=== PATIENT | male | born 1960 | race Caucasian/White ===

== ENCOUNTER 2024-12-03 10:36 | Observation (INO) ==
[2024-12-03 11:10] LABS: MEAN PLATELET VOLUME 8.4 fL (7.4-11.0); RED CELL DISTRIBUTION WIDTH 14.7 % (11.6-16.5)
[2024-12-03 11:24] LABS: COR NA(FOR HYPERGLY) 139 mmol/L (136-145); CREATININE 0.87 mg/dL (0.70-1.30); eGFR NON BLACK RACES > 60 (>60)
--- NOTE | 2024-12-03 11:25 | DR.GENAD ---
HPI Time Seen Time Seen by Provider: 12/03/24 11:22 PCP Primary Care Physician: odette shelton Complaint/Symptoms Chief Complaint Doctors Comments: Patient stated he has had a stroke sometime ago and he is not ambulatory as much so he is sitting down and he develops of a lot of moist activity in private area. He has been treated for yeast infection for the last month with Diflucan he said for the last couple days he has noticed some foul can order that area and more drainage in his scrotum area he is here to further evaluate that. Chief Complaint:: Patient states he has a issue with his private area staying moist due to prolong sitting due to a past cva he states for the past month he developed a yeast infection in his scrotum area he been on diflucan but the past couple days he has had increase pain and swelling in his scrotum area along with redness and foul smelling green discharge coming out for around the scrotum. Self Treatment fo Chief Complaint: diflucan COVID-19 Coronavirus risk:travel/contact w/high risk person: No Has patient experienced Coronavirus symptoms: No Source History Provided: Patient Mode of Arrival Mode of Arrival: Wheelchair Timing Onset of Chief Complaint: 11/26/24 PMH PMH Past Medical History: Yes Past Medical History: CVA, Diabetes and Hypertension Past Medical History Comment: a-fib, brain aneurysm Past Surgical History: Yes Past Surgical History Comment: brain aneurysm Family History History of Family Medical Conditions: Yes Family Medical History: Diabetes Mellitus and Hypertension Social History Does patient currently use any type of tobacco product: No Have you used tobacco products in the last 12 months: No Type of Tobacco Use: None Does any household member use tobacco: No Alcohol Use: None Do you use any recreational Drugs:: No Lives With: Family Lives Where: Home Travel Risk Coronavirus risk:travel/contact w/high risk person: No Has patient experienced Coronavirus symptoms: No Infectious screening In the last 2 months have you had wt loss of >10#?: NO Have you had fever, night sweats or hemotysis?: No Have you traveled outside the country in the last 6 months?: No Isolation: Standard ROS Review of Systems Constitutional: Other (scrotal pain and erythema) Eyes: No Symptoms Reported ENTM: No Symptoms Reported Respiratoy: No Symptoms Reported Cardiovascular: No Symptoms Reported Gastrointestinal/Abdominal: No Symptoms Reported Genitourinary: Other (scrotal pain and erythema) Neurological: No Symptoms Reported Musculoskeletal: No Symptoms Reported Integumentary: Other (erythema and swelling of scrotum) PE Vital Signs Vitals: Vital Signs Pulse Rate 76 Pulse Rate 72 Pulse Rate 65 Pulse Rate 72 Pulse Rate 71 Pulse Rate 69 Pulse Rate 68 Pulse Rate 71 Pulse Rate 72 Pulse Rate 72 Pulse Rate 67 Pulse Rate 72 Pulse Rate 71 Pulse Rate 74 Pulse Rate 74 Pulse Rate 70 Pulse Rate 72 Pulse Rate 73 Respiratory Rate 15 Blood Pressure 132/89 Blood Pressure 106/62 Blood Pressure 143/89 Blood Pressure 143/89 Blood Pressure 143/89 Blood Pressure 114/74 Blood Pressure 114/74 Blood Pressure 151/95 Blood Pressure 151/95 Blood Pressure 124/76 Blood Pressure 130/80 Blood Pressure 106/67 O2 Sat by Pulse Oximetry 96 O2 Sat by Pulse Oximetry 94 O2 Sat by Pulse Oximetry 96 O2 Sat by Pulse Oximetry 95 O2 Sat by Pulse Oximetry 95 O2 Sat by Pulse Oximetry 96 O2 Sat by Pulse Oximetry 95 O2 Sat by Pulse Oximetry 95 O2 Sat by Pulse Oximetry 96 O2 Sat by Pulse Oximetry 95 O2 Sat by Pulse Oximetry 94 O2 Sat by Pulse Oximetry 94 O2 Sat by Pulse Oximetry 96 O2 Sat by Pulse Oximetry 96 O2 Sat by Pulse Oximetry 96 General Limitations: No Limitations General Appearance: In Distress (moderate distress) Head Head Exam: Normal Inspection, Atraumatic and Normocephalic Eyes Eye exam: Normal Appearance ENT ENT Exam: Normal Exam and Normal Oropharynx External Ear Exam: Normal External Inspection TM/Canal Exam: Bilateral: Normal Nose Exam: Normal Nose Exam Mouth Exam: Normal Inspection Throat Exam: Normal Inspection Neck Neck Exam: Normal Inspection Chest Chest Inspection: Normal Inspection Respiratory Respiratory Exam: Normal Lung Sounds Bilat Respiratory Exam: Bilateral: Clear to Auscultation Cardiovascular Cardiovascular Exam: Regular Rate Abdominal Exam Abdominal Exam: Normal Inspection Extremities Extremities Exam: Normal Inspection Back Back Exam: Normal Inspection Psychiatric Psychiatric Exam: Normal Affect Skin Skin Exam: Warm, Dry, Intact and Other (erythema in scrotal area) Other Exam Other Exam: erythema in scrotal area with edema MDM Differential Diagnosis Differential Diagnosis: scrotal cellulitis,yeast orchitis COURSE Treatment Treatment: Patient remained relatively stable during ER evaluation. We did do a CT scan of this abdomen pelvis that did not show that he may have a scrotal cellulitis and they suggest suggest that we get a ultrasound of the testicles to make sure he does not have abscess we did do a an ultrasound of the testicles and it did not show a an abscess that shows some other things like varicocele and some hydrocele but no other torsions or anything like that. Patient did have a slightly elevated WBC of 12.5 since he is a diabetic and has had a stroke where he is almost very weak and paralyzed from the waist down we did give him 600 of Cleocin in the ER and referred him to the on-call physician Dr. Fairbanks to further treat for a scrotal cellulitis. I did talk to Dr. Fairbnaks at 2014 and he stated that the patient could be admitted for further treatment with IV antibiotics but also add Diflucan to the regimen. Did call for the case management and they said the patient could be admitted to observation. Patient was told of intent to admit to observation and was agreeable to the admission. [facility]OR Labs Reviewed Laboratory Results Reviewed?: Yes 12/03/24 10:50 12/03/24 10:50 Laboratory: 12/03/24 11:44 Scrotum Wound Gram Stain - Final WBC 12.5 X10^3/uL (3.6-10.0) H 12/03/24 10:50 RBC 4.99 X10^6/uL (4.7-6.0) 12/03/24 10:50 Hgb 14.8 g/dL (13.5-18.0) 12/03/24 10:50 Hct 43.7 % (42.0-54.0) 12/03/24 10:50 MCV 87.6 fL (80.0-100.0) 12/03/24 10:50 MCH 29.7 pg (27.0-34.0) 12/03/24 10:50 MCHC 33.9 g/dL (33.0-35.0) 12/03/24 10:50 RDW 14.7 % (11.6-16.5) 12/03/24 10:50 Plt Count 158 X10^3/uL (150.0-450.0) 12/03/24 10:50 MPV 8.4 fL (7.4-11.0) 12/03/24 10:50 Neut % (Auto) 72.4 % (42.0-75.0) 12/03/24 10:50 Lymph % (Auto) 14.9 % (21.0-51.0) L 12/03/24 10:50 [place] % (Auto) 11.2 % (0.0-13.0) 12/03/24 10:50 Eos % (Auto) 1.0 % (0.9-2.9) 12/03/24 10:50 Baso % (Auto) 0.5 % (0.2-1.0) 12/03/24 10:50 Neut # (Auto) 9.0 x10^3/uL (2.2-4.8) H 12/03/24 10:50 Lymph # (Auto) 1.9 X10^3/uL (1.3-2.9) 12/03/24 10:50 [place] # (Auto) 1.4 x10^3/uL (0.3-0.8) H 12/03/24 10:50 Eos # (Auto) 0.1 x10^3/uL (0.0-0.2) 12/03/24 10:50 Baso # (Auto) 0.1 X10^3/uL (0.0-0.1) 12/03/24 10:50 Absolute Nucleated RBC 0.2 /100WBC 12/03/24 10:50 Sodium 136 mmol/L (136-145) 12/03/24 10:50 Corrected Sodium 139 mmol/L (136-145) 12/03/24 10:50 Potassium 3.6 mmol/L (3.5-5.1) 12/03/24 10:50 Chloride 101 mmol/L (98-107) 12/03/24 10:50 Carbon Dioxide 27.9 mmol/L (21-32) 12/03/24 10:50 BUN 16 mg/dL (7-18) 12/03/24 10:50 Creatinine 0.87 mg/dL (0.70-1.30) 12/03/24 10:50 Est GFR (MDRD) Af Amer > 60 (>60) 12/03/24 10:50 Est GFR (MDRD) Non-Af > 60 (>60) 12/03/24 10:50 Glucose 225 mg/dL (65-99) H 12/03/24 10:50 POC Glucose (mg/dL) 176 mg/dL (65-99) H 12/03/24 14:13 Lactic Acid 1.6 mmol/L (0.4-2.0) 12/03/24 10:50 Calcium 8.6 mg/dL (8.5-10.1) 12/03/24 10:50 Corrected Calcium TNP 12/03/24 10:50 Total Bilirubin 1.20 mg/dL (0.2-1.0) H 12/03/24 10:50 AST 17 Units/L (15-37) 12/03/24 10:50 ALT 24 Units/L (12-78) 12/03/24 10:50 Alkaline Phosphatase 117 Units/L (46-116) H 12/03/24 10:50 Total Protein 7.8 g/dL (6.4-8.2) 12/03/24 10:50 Albumin 3.8 g/dL (3.4-5.0) 12/03/24 10:50 Globulin 4.0 g/dL (2.5-4.5) 12/03/24 10:50 Albumin/Globulin Ratio 1.0 Ratio (1.1-2.1) L 12/03/24 10:50 Opioid Opioid Risk Tool Age (Brennan box if 16-45): No History of Preadolescent Sexual Abuse: No Total: 0 Total Score Risk Category: Low Risk Copyright: Golden STEINER predicting aberrant behaviors Discharge Plan Diagnosis Discharge Problem: Cellulitis of scrotum, Candidiasis of scrotum Discharge Plan Patient Disposition: ADMITTED INPATIENT Condition: Stable Orders to Discharge Patient Discharge Orders: Transfer (Routine); Ordered 12/03/24 Ordered By: Willie Byrne
--- NOTE | 2024-12-03 12:38 | CT ---
EXAMINATION: ABDOMEN/PELVIS W/O CON HISTORY: abdominal pain / scrotum swelling; . COMPARISON: None. TECHNIQUE: Unenhanced axial images were obtained through the abdomen and pelvis using renal stone protocol. Reformatted images were obtained as well. Lack of oral and IV contrast limits diagnostic sensitivity The above CT scan was done with automated exposure control and the mA and kV was adjusted to obtain quality images according to patient size. FINDINGS: Lung bases: No acute findings. Coronary artery calcification. Dependent atelectasis Liver: No acute finding or focal lesion. GB/Biliary: No gallstones or dilated ducts Spleen: Normal size and density Pancreas: No acute findings. No pseudocyst or dilated duct Adrenal Glands: No mass Kidneys: No obstructing stone, hydronephrosis or solid-appearing lesions. Abdominal aorta: Tapers normally Retroperitoneum: No pathologically enlarged lymph nodes Bowel: No thickened or dilated loops of bowel, free fluid, free air, pneumatosis or abscess. Moderate stool. Simple diverticula. No CT evidence for appendicitis. Unremarkable appendix. Rectus diastasis. No CT evidence for appendicitis, diverticulitis or obstruction Bladder/: Ureters and bladder unremarkable. Prostate seminal vesicles unremarkable for age. There is thickening along the skin of the scrotum which could be seen with cellulitis. No subcutaneous emphysema or organized abscess. No subcutaneous emphysema or organized abscess along the perineum. Osseous: Degenerative changes in the thoracolumbar spine. No acute findings or bony lesions. IMPRESSION: No acute intra-abdominal or intrapelvic process. No CT evidence for appendicitis, diverticulitis or obstruction. No obstructing renal stones. Thickening of the scrotum could represent cellulitis. No subcutaneous emphysema or organized abscess. Consider ultrasound for further assessment THIS IS AN ELECTRONICALLY VERIFIED FINAL REPORT 12/03/2024 12:35 PM - Electronically signed by Trenton Theodore MD
[2024-12-03] MEDS ORDERED: NS 1,000 ML IV 1,000 ML ONE (19:07)
[2024-12-03] MEDS: NS 1,000 ML IV 1,000 ML IV SCH (19:13)
[2024-12-03] MEDS: CLEOCIN 600 MG IV PREMIX 600 MG/50 ML BAG IV SCH (19:13)
--- NOTE | 2024-12-03 19:20 | US ---
EXAM: SCROTAL/TESTICULAR ULTRASOUND HISTORY: Scrotal cellulitis. Possible testicular abscess. TECHNIQUE: Gilliam scale imaging, duplex Doppler and color flow Doppler imaging are performed with a high frequency linear transducer. COMPARISON: None available. FINDINGS: Both testicles are normal in size and echogenicity. The right testicle measures approximately 3.9 cm x 2.6 cm x 2.9 cm, and the left testicle measures approximately 3.9 cm x 2.8 cm x 3.1 cm. Normal symmetrical color flow Doppler signal is seen within the testicles. There is no evidence for testicular torsion or orchitis. There is no testicular mass seen. 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 There is thickening (1.3 cm) and heterogeneity of the body and tail of the right epididymis, without hyperemia color-flow Doppler signal, which could represent sequela of chronic epididymitis in the appropriate clinical setting. The right epididymal head measures approximately 6.5 mm, and the left epididymal head measures approximately 13 mm, which are within normal limits. There is an approximately 4.1 mm x 2.6 mm anechoic/simple right epididymal head cyst or spermatocele. There is evidence for diffuse scrotal skin thickening with hyperemic color flow Doppler signal consistent with cellulitis in the appropriate clinical setting. No evidence for soft tissue emphysema reminiscent of Kiesha's gangrene or necrotizing fasciitis is seen at this time. Careful clinical correlation is advised. There is evidence for a left scrotal varicocele. There is a small to moderate anechoic/simple right hydrocele. There is no evidence for herniated bowel loops seen bilaterally. IMPRESSION: 1. No evidence for testicular mass, testicular torsion, or orchitis. 2. 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 3. Thickening (1.3 cm) and heterogeneity of the body and tail of the right epididymis, without hyperemia color-flow Doppler signal, which could represent sequela of chronic epididymitis in the appropriate clinical setting. 4. Evidence for diffuse scrotal skin thickening with hyperemic color flow Doppler signal consistent with cellulitis in the appropriate clinical setting. 5. Evidence for a left scrotal varicocele. 6. Small to moderate anechoic/simple right hydrocele. THIS IS AN ELECTRONICALLY VERIFIED FINAL REPORT 12/03/2024 7:16 PM - Electronically signed by Sanju Wylie MD
[2024-12-03] MEDS ORDERED: PRECEDEX INJ VIAL ONE (21:08)
[2024-12-03] MEDS ORDERED: XYLOCAINE 2 % (PLAIN) ONE (21:08)
[2024-12-04 00:31] VITALS: BMI 35.0
[2024-12-04] MEDS: HIBICLENS WASH ONE (00:46)
[2024-12-04] MEDS: ELIQUIS PO SCH (00:51)
[2024-12-04] MEDS: KEPPRA TAB 500 MG PO SCH (00:52)
[2024-12-04] MEDS: NORCO 5/325 MG TAB PO PRN (04:32)
[2024-12-04 07:03] LABS: MEAN PLATELET VOLUME 8.6 fL (7.4-11.0); RED CELL DISTRIBUTION WIDTH 14.2 % (11.6-16.5)
[2024-12-04 07:08] LABS: COR CA(FOR HYPOALB) 8.8 mg/dL (8.5-10.1); COR NA(FOR HYPERGLY) 139 mmol/L (136-145); CREATININE 0.71 mg/dL (0.70-1.30); eGFR NON BLACK RACES > 60 (>60)
[2024-12-04] MEDS ORDERED: CONSULT PHARMACY - POTASSIUM & MAGNESIUM XX SCH (08:00)
[2024-12-04] MEDS: MAG-OX TAB PO SCH (08:06)
[2024-12-04] MEDS: K-DUR TAB 20 MEQ PO SCH (08:07)
[2024-12-04] MEDS ORDERED: DIFLUCAN 100 MG IV (MIX by PHARMACY)* 100 MG/50 ML BAG IV SCH (09:00)
[2024-12-04] MEDS: BENICAR PO SCH (09:18)
[2024-12-04] MEDS: COREG TAB 12.5 MG PO SCH (09:19)
[2024-12-04] MEDS: LASIX PO SCH (09:19)
[2024-12-04] MEDS: NORVASC TAB 5 MG PO SCH (09:20)
[2024-12-04] MEDS: DIFLUCAN 200 MG IV PREMIX* 200 MG/100 ML BAG IV SCH (10:29)
[2024-12-04] MEDS: LANTUS SC SCH ×2 (10:51→22:00)
[2024-12-04] MEDS ORDERED: MAGNESIUM SULFATE 1 GRAM/100 mL PREMIX 1 G/100 ML BAG IV SCH (12:01)
[2024-12-04] MEDS: NYSTATIN OINT TOP SCH (12:42)
[2024-12-04] MEDS: GLUCOPHAGE XR 24-HR PO SCH (12:52)
[2024-12-04] MEDS: CLEOCIN 600 MG IV PREMIX 600 MG/50 ML BAG IV ONE (14:01)
[2024-12-04] MEDS ORDERED: SNACK - Diabetic Appropriate PO SCH (20:00)
[2024-12-04] MEDS: LIPITOR TAB 80 MG PO SCH (21:42)
[2024-12-05 06:54] LABS: MEAN PLATELET VOLUME 8.5 fL (7.4-11.0); RED CELL DISTRIBUTION WIDTH 14.5 % (11.6-16.5)
[2024-12-05 07:11] LABS: COR CA(FOR HYPOALB) 9.0 mg/dL (8.5-10.1); COR NA(FOR HYPERGLY) 139 mmol/L (136-145); CREATININE 0.64 mg/dL (0.70-1.30); eGFR NON BLACK RACES > 60 (>60)
[2024-12-05] MEDS ORDERED: CONSULT PHARMACY - POTASSIUM & MAGNESIUM XX SCH (08:00)
[2024-12-05] MEDS: KLOR-CON PO SCH (08:23)
[2024-12-05] MEDS: MAG-OX TAB PO SCH (08:25)
[2024-12-05] MEDS: K-DUR TAB 20 MEQ PO SCH (08:36)
[2024-12-05] MEDS ORDERED: NS 250 ML IV 25 ML IV PRN (10:48)
[2024-12-05] MEDS: ZOSYN VIAL 3.375 GRAMS 3.375 G in NS 100 ML IV 100 ML IV SCH (14:50)
[2024-12-06 05:44] LABS: MEAN PLATELET VOLUME 8.6 fL (7.4-11.0); RED CELL DISTRIBUTION WIDTH 13.8 % (11.6-16.5)
[2024-12-06 05:53] LABS: COR CA(FOR HYPOALB) 9.0 mg/dL (8.5-10.1); COR NA(FOR HYPERGLY) 141 mmol/L (136-145); CREATININE 0.58 mg/dL (0.70-1.30); eGFR NON BLACK RACES > 60 (>60)
[2024-12-06] MEDS ORDERED: CONSULT PHARMACY - POTASSIUM & MAGNESIUM XX SCH ×2 (06:00→07:00)
[2024-12-06] MEDS: MAG-OX TAB PO SCH (08:14)
[2024-12-07 05:27] LABS: MEAN PLATELET VOLUME 8.2 fL (7.4-11.0); RED CELL DISTRIBUTION WIDTH 14.3 % (11.6-16.5)
[2024-12-07 05:42] LABS: COR CA(FOR HYPOALB) 9.3 mg/dL (8.5-10.1); COR NA(FOR HYPERGLY) 138 mmol/L (136-145); CREATININE 0.69 mg/dL (0.70-1.30); eGFR NON BLACK RACES > 60 (>60)
[2024-12-07] MEDS: NS 1,000 ML IV 1,000 ML with MAGNESIUM SULFATE 50% INJ VIAL 1 G IV SCH (08:01)
[2024-12-07] MEDS: CIPRO IV 400 MG PREMIX* 400 MG/200 ML IV.SOLN. IV SCH (09:26)
[2024-12-07] MEDS: DIPRIVAN VIAL 20 ML ONE (09:57)
[2024-12-07] MEDS: FENTANYL VIAL INJ 100 mcg ONE (09:57)
[2024-12-07] MEDS: VERSED ONE (09:57)
[2024-12-07] MEDS: KETAMINE HCL ONE (10:04)
[2024-12-07] MEDS: ZOFRAN INJ 4 MG VIAL ONE (10:05)
[2024-12-07] MEDS: PEPCID 20 MG VIAL ONE (10:05)
[2024-12-07] MEDS: NS 1,000 ML IV 1,000 ML ONE (10:11)
[2024-12-07] MEDS: POLYMYXIN B SULFATE ONE (10:18)
[2024-12-07] MEDS: PEPCID 20 MG VIAL IVP PRN (10:20)
[2024-12-07] MEDS: NS 1,000 ML IV 400 ML IV PRN (10:20)
[2024-12-07] MEDS: ZOFRAN INJ 4 MG VIAL IVP PRN (10:20)
[2024-12-07] MEDS: VANCOMYCIN IV *PREMIX 1 G/200 ML BAG 1 G/200 ML PIGGYBACK IV ONE (10:30)
[2024-12-07] MEDS: VANCOMYCIN HCL IV PRN (10:30)
[2024-12-07] MEDS: VERSED IVP PRN (10:31)
[2024-12-07] MEDS: BETADINE SOLN ONE (10:33)
[2024-12-07] MEDS: DIPRIVAN VIAL 60 ML IVP PRN (10:40)
[2024-12-07] MEDS: KETAMINE HCL IV PRN (10:40)
[2024-12-07] MEDS ORDERED: XYLOCAINE 2 % (PLAIN) PRN (10:40)
[2024-12-07] MEDS: PRECEDEX INJ VIAL IVP PRN (10:41)
[2024-12-07] MEDS: HYDROGEN PEROXIDE 3% ONE (10:47)
[2024-12-07] MEDS: FENTANYL VIAL INJ 100 mcg IVP PRN (10:48)
[2024-12-08 01:29] VITALS: RESP 19
[2024-12-08 03:58] VITALS: O2SAT 93
[2024-12-08 05:49] LABS: MEAN PLATELET VOLUME 8.0 fL (7.4-11.0); RED CELL DISTRIBUTION WIDTH 14.3 % (11.6-16.5)
[2024-12-08 06:14] LABS: COR CA(FOR HYPOALB) 9.3 mg/dL (8.5-10.1); COR NA(FOR HYPERGLY) 138 mmol/L (136-145); CREATININE 0.64 mg/dL (0.70-1.30); eGFR NON BLACK RACES > 60 (>60)
[2024-12-08] MEDS ORDERED: CONSULT PHARMACY - POTASSIUM & MAGNESIUM XX SCH (07:00)
[2024-12-08 08:06] VITALS: BP 130/80; PULSE 80; TEMP 97.6
[2024-12-08] MEDS: MAG-OX TAB PO SCH (09:00)
[2024-12-08] MEDS: LASIX IVP ONE (10:09)
[2024-12-08] MEDS: LASIX ONE (10:18)
== END 2024-12-08 10:45 | disposition home health service (06) ==
LOC: ER 10:36 → MED/SURG 10:36
PROVIDERS: ADMIT Obstetrics & Gynecology Obstetrics; ATTEND Internal Medicine
DX: Z16.11 Resistance to penicillins; Z65.8 Other specified problems related to psychosocial circumstances; Z16.19 Resistance to other specified beta lactam antibiotics; B37.89 Other sites of candidiasis; R10.84 Generalized abdominal pain; Z79.01 Long term (current) use of anticoagulants; Z79.4 Long term (current) use of insulin; I10 Essential (primary) hypertension; E11.65 Type 2 diabetes mellitus with hyperglycemia; B96.89 Other specified bacterial agents as the cause of diseases classified elsewhere; I48.91 Unspecified atrial fibrillation; N49.2 Inflammatory disorders of scrotum; I69.351 Hemiplegia and hemiparesis following cerebral infarction affecting right dominant side